=== PATIENT | male | born 1975 | race Caucasian/White ===

== ENCOUNTER 2017-03-18 20:30 | Emergency (ER) | payer MEDICAID, OTHER ==
[~2017-03-18] VITALS: Ht 177.8 cm; Wt 100.0 kg
[~2017-03-18 20:30] MED LIST: NOCURR
[2017-03-18 22:00] VITALS: BP 138/74
[2017-03-18] MEDS: CYCLOBENZAPRINE HCL 10 MG TABLET PO ONE (22:08)
[2017-03-18] MEDS: KETOROLAC TROMETHAMINE 60 MG/2 ML VIAL IM ONE (22:09)
== END 2017-03-18 22:15 | disposition home or self-care (01) ==
LOC: EMS 20:32
DX: S39.012A Strain of muscle, fascia and tendon of lower back, initial encounter (principal); M62.838 Other muscle spasm; Z88.1 Allergy status to other antibiotic agents; V49.88XA Car occupant (driver) (passenger) injured in other specified transport accidents, initial encounter; Y93.89 Activity, other specified; Y92.89 Other specified places as the place of occurrence of the external cause; Y99.8 Other external cause status
CPT/HCPCS: 99283

== ENCOUNTER 2023-05-06 07:04 | Emergency (ER) | payer OTHER ==
[~2023-05-06] VITALS: Ht 177.8 cm; Wt 104.5 kg
[2023-05-06 07:06] VITALS: TEMP 98
[2023-05-06 07:22] VITALS: BP 132/73; PULSE 82; RESP 16
[2023-05-06] MEDS ORDERED: IBUP-1492 PO (08:07)
== END 2023-05-06 08:27 | disposition home or self-care (01) ==
LOC: EMS 07:06
DX: S63.502A Unspecified sprain of left wrist, initial encounter (principal); W05.1XXA Fall from non-moving nonmotorized scooter, initial encounter; Y93.89 Activity, other specified; Y92.89 Other specified places as the place of occurrence of the external cause; Y99.8 Other external cause status
CPT/HCPCS: 99283

== ENCOUNTER 2025-07-09 01:33 | Emergency (ER) | payer MEDICAID, OTHER ==
[~2025-07-09] VITALS: Ht 177.8 cm; Wt 100.0 kg
[~2025-07-09 01:33] MED LIST changes: +IBUP-1492 PO; -NOCURR
[2025-07-09 01:52] VITALS: BP 154/89; PULSE 99; RESP 18; TEMP 98.1; O2SAT 99
[2025-07-09] MEDS ORDERED: PERM60CR21 TP (02:02)
== END 2025-07-09 02:08 | disposition home or self-care (01) ==
LOC: EMS 01:54
DX: S40.862A Insect bite (nonvenomous) of left upper arm, initial encounter (principal); S40.861A Insect bite (nonvenomous) of right upper arm, initial encounter; L29.9 Pruritus, unspecified; Z90.49 Acquired absence of other specified parts of digestive tract; Z79.1 Long term (current) use of non-steroidal anti-inflammatories (NSAID); Z88.0 Allergy status to penicillin; W57.XXXA Bitten or stung by nonvenomous insect and other nonvenomous arthropods, initial encounter; Y93.89 Activity, other specified; Y92.89 Other specified places as the place of occurrence of the external cause; Y99.8 Other external cause status
CPT/HCPCS: 99282; Z7502